=== PATIENT | female | born 1935 | race Caucasian/White ===

== ENCOUNTER 2016-12-14 08:32 | Day surgery (SDC) | payer MEDICARE ==
--- NOTE | ~2016-12-14 | EGD ---
EGD REPORT [facility] [address] [address] NAME: LAURA COSTA : [birth year] STATUS : REG [facility]#: [id number] AGE: 81 ADM/REG DATE : 12/14/16 MR#: [id number] REPORT SERV DATE: 12/14/16 DICTATED BY: ADELINE YEAGER DATE: 12/14/16 REPORT STATUS : Draft TRANSCRIBED BY: [facility] DATE: 12/14/16 Endoscopy Center Patient Name: Laura Costa Date of : 1935 Attending MD: ADELINE YEAGER MD Procedure Date No Time: 12/14/2016 Procedure: Upper GI endoscopy Indications: Epigastric abdominal pain, Heartburn, Suspected esophageal reflux, Chronic cough, Personal history of peptic ulcer disease Referring MD: MARIBEL DANIEL MD Medicines: as per anesthesia Complications: No immediate complications. Procedure: Pre-Anesthesia Assessment: - ASA Grade Assessment: II - A patient with mild systemic disease. After obtaining informed consent, the endoscope was passed under direct vision. Throughout the procedure, the patient's blood pressure, pulse, and oxygen saturations were monitored continuously. The GIF H190 [id number] was introduced through the mouth, and advanced to the third part of duodenum. The upper GI endoscopy was accomplished without difficulty. The patient tolerated the procedure. Findings: The examined esophagus was normal. Localized mild inflammation characterized by erythema was found in the gastric antrum. Biopsies were taken with a cold forceps for histology. The cardia and gastric fundus were normal on retroflexion. The examined duodenum was normal. Impression: - Normal esophagus. - Gastritis. Biopsied. - Normal examined duodenum. Recommendation: - Await pathology results. - Follow an antireflux regimen. - Continue present medications. Procedure Code(s): --- Professional --- 19324, Esophagogastroduodenoscopy, flexible, transoral; with biopsy, single or multiple Diagnosis Code(s): --- Professional --- EGD REPORT [address] [facility] [place] [address] NAME: LAURA COSTA : [birth year] STATUS : REG [facility] PAT#: [id number] AGE: 81 ADM/REG DATE : 12/14/16 MR#: [id number] REPORT SERV DATE: 12/14/16 DICTATED BY: ADELINE YEAGER. DATE: 12/14/16 REPORT STATUS : Draft TRANSCRIBED BY: [employer] DATE: 12/14/16 K29.70, Gastritis, unspecified, without bleeding R10.13, Epigastric pain R12, Heartburn R05, Cough Z87.11, Personal history of peptic ulcer disease CPT copyright 2013 [employer]. All rights reserved. The codes documented in this report are preliminary and upon dental service technician review may be revised to meet current compliance requirements. ADELINE YEAGER MD 12/14/2016 11:45 AM This report has been signed electronically. Number of Addenda: 0 Note Initiated On: 12/14/2016 11:23 AM Scope Withdrawal Time 0 hours 0 minutes [address] [place] [address] [place] [address]
--- NOTE | ~2016-12-14 | EGD ---
EGD REPORT [facility] [address] [address] NAME: LAURA COSTA : [birth year] STATUS : REG [facility]#: [id number] AGE: 81 ADM/REG DATE : 12/14/16 MR#: [id number] REPORT SERV DATE: 12/14/16 DICTATED BY: ADELINE YEAGER DATE: 12/14/16 REPORT STATUS : Draft TRANSCRIBED BY: [employer] DATE: 12/14/16 Endoscopy Center Patient Name: Laura Costa Date of : 1935 Attending MD: ADELINE YEAGER MD Procedure Date No Time: 12/14/2016 Procedure: Colonoscopy Indications: Screening in patient at increased risk: Family history of 1st-degree relative with colorectal cancer Referring MD: MARIBEL DANIEL MD Medicines: as per anesthesia Complications: No immediate complications. Procedure: Pre-Anesthesia Assessment: - ASA Grade Assessment: II - A patient with mild systemic disease. After I obtained informed consent, the scope was passed under direct vision. Throughout the procedure, the patient's blood pressure, pulse, and oxygen saturations were monitored continuously. The PCF [id number] was introduced through the anus and advanced to the cecum, identified by appendiceal orifice and ileocecal valve. The colonoscopy was performed without difficulty. The patient tolerated the procedure. The quality of the bowel preparation was fair. Findings: The perianal and digital rectal examinations were normal. Many small and large-mouthed diverticula were found in the sigmoid colon and in the descending colon. Internal hemorrhoids were found during endoscopy and were mild. Impression: - Diverticulosis in the sigmoid colon and in the descending colon. - Internal hemorrhoids. Recommendation: - Continue present medications. Procedure Code(s): --- Professional --- 92154, Colonoscopy, flexible, proximal to splenic flexure; diagnostic, with or without collection of specimen(s) by brushing or washing, with or without colon decompression (separate procedure) Diagnosis Code(s): --- Professional --- K64.8, Other hemorrhoids EGD REPORT [facility] [address] [place], [place] [address] [place]. [address] NAME: LAURA COSTA : [birth year] STATUS : REG [facility] PAT#: [id number] AGE: 81 ADM/REG DATE : 12/14/16 MR#: [id number] REPORT SERV DATE: 12/14/16 DICTATED BY: ADELINE YEAGER. DATE: 12/14/16 REPORT STATUS : Draft TRANSCRIBED BY: [employer] DATE: 12/14/16 K57.30, Diverticulosis of large intestine without perforation or abscess without bleeding Z12.11, Encounter for screening for malignant neoplasm of colon Z80.0, Family history of malignant neoplasm of digestive organs CPT copyright 2013 [employer]. All rights reserved. The codes documented in this report are preliminary and upon wind energy technician review may be revised to meet current compliance requirements. ADELINE YEAGER MD 12/14/2016 12:08 PM This report has been signed electronically. Number of Addenda: 0 Note Initiated On: 12/14/2016 11:24 AM Scope Withdrawal Time 0 hours 6 minutes 42 seconds [address] [facility] [place] [address]
[~2016-12-14 08:32] MED LIST: ACET500CAP PO; ADVIL PO; ALEVE220 MG PO; ASAB PO; CALTRA600D PO; CHLO-TUSS PO; CLIMARA 0.050.05 MG TOP; DIOV160 PO; MICARDIS HC1 PO; NEXIUM40 PO; PREV30 PO; PROTONIX PO; T PO; VALSARTAN; VITAMIN D2000 UNIT PO; VYTORIN 10/40 T1 TAB PO; ZOCOR40 PO; [UNRECOGNIZED DRUG - OTHER]; [UNRECOGNIZED DRUG - OTHER]
== END 2016-12-14 23:59 | disposition home or self-care (01) ==
LOC: DMU 08:32
PROVIDERS: Internal Medicine Gastroenterology
PROC: 0DB68ZX Excision of Stomach, Via Natural or Artificial Opening Endoscopic, Diagnostic (ICD-10-PCS; principal; 2016-12-14 10:00)
PROC: 0DJD8ZZ Inspection of Lower Intestinal Tract, Via Natural or Artificial Opening Endoscopic (ICD-10-PCS; 2016-12-14 10:00)
DX: Z12.11 Encounter for screening for malignant neoplasm of colon (principal); K29.50 Unspecified chronic gastritis without bleeding; R10.13 Epigastric pain; R12 Heartburn; R05 Cough; Z87.11 Personal history of peptic ulcer disease; K64.8 Other hemorrhoids; K57.30 Diverticulosis of large intestine without perforation or abscess without bleeding; Z80.0 Family history of malignant neoplasm of digestive organs; I10 Essential (primary) hypertension; Z88.5 Allergy status to narcotic agent; E78.00 Pure hypercholesterolemia, unspecified; M19.90 Unspecified osteoarthritis, unspecified site
CPT/HCPCS: 88305